=== PATIENT | male | born 1955 | race Caucasian/White ===

== ENCOUNTER 2017-07-27 07:30 | Day surgery (SDC) | payer BC, OTHER ==
[2017-07-27] MEDS ORDERED: Dextrose 5%-Lactated Ringers 1,000 ML IV SCH (08:15)
[2017-07-27] MEDS ORDERED: Propofol 200 MG/20 ML SDV ONE (09:03)
[2017-07-27] MEDS ORDERED: fentaNYL 100 MCG/2 ML SDV ONE (09:03)
[2017-07-27] MEDS ORDERED: Midazolam 1 MG/ML 2 ML SDV ONE (09:03)
--- NOTE | 2017-07-30 12:26 | OR ---
DATE OF PROCEDURE: 07/27/2017 PREOPERATIVE DIAGNOSIS: Indications for screening colonoscopy. POSTOPERATIVE DIAGNOSIS: Normal colonoscopic exam. OPERATIVE PROCEDURE: Flexible colonoscopy. ANESTHESIA: IV sedation. INDICATIONS FOR PROCEDURE: A 62-year-old male presenting for a screening colonoscopy. He does have a family history of his mother having advanced colon carcinoma. Last colonoscopy was 10 years ago. The plan is to proceed with a flexible colonoscopy with biopsies and/or polypectomy as indicated. Potential risks including bleeding and perforation were discussed, and the patient wishes to proceed. DETAILS OF PROCEDURE: The patient was taken to the operating room and placed in a left lateral decubitus position. After IV sedation was administered, initial digital rectal exam was performed and was unremarkable. Colonoscope was then passed into the rectum with retroflexion revealing uncomplicated hemorrhoidal columns. The scope was eventually passed to the level of the cecum. There was a fairly good prep. There was some liquid stool as well as some undigested corn present, but minimal areas of mucosa were not visualized to that level, and there were no areas of colitis and no areas of diverticular disease, and no polyps or other signs of neoplasia. The scope was then withdrawn, the above findings reconfirmed, and the procedure concluded. The patient was taken to the recovery room in a satisfactory condition. Given the patient's history of his mother having colon carcinoma, he should probably be on a five-year followup track with regard to his colonoscopy, i.e. the next colonoscopy should be in around 5 years. Booker Roblero MD /[id number]
== END 2017-07-27 11:00 | disposition home or self-care (01) ==
LOC: JP.SDS 07:30
PROVIDERS: ATTEND Surgery
DX: Z12.11 Encounter for screening for malignant neoplasm of colon (principal); Z80.0 Family history of malignant neoplasm of digestive organs
CPT/HCPCS: 45378; J2250; J2704; J3010; J7042

== ENCOUNTER 2020-03-10 21:00 | Emergency (ER) | payer BC, MEDICARE ==
[2020-03-10] MEDS ORDERED: EPINEPHrine 1 MG/ML SDV IM ONE (21:09)
[2020-03-10] MEDS ORDERED: methylPREDNISolone Sodium Succinate 125 MG/2 ML SDV IV ONE (21:09)
[2020-03-10] MEDS ORDERED: Famotidine 20 MG/2 ML SDV IVPUSH ONE (21:09)
--- NOTE | 2020-03-10 21:13 | EDM.PDOC ---
ED HPI GENERAL MEDICAL PROBLEM - General Stated Complaint: MED[facility] Time Seen by Provider: 03/10/20 21:09 Source of Information: Reports: Patient, EMS, RN Notes Reviewed History Limitations: Reports: No Limitations - History of Present Illness INITIAL COMMENTS - FREE TEXT/NARRATIVE: 64-year-old gentleman presents to the emergency department today with swollen lips and swollen tongue unfortunately he was stung by a wasp just prior to presentation EMS did find him provided 50 mg Benadryl IM with 0.5 mg epinephrine IM as well as Zofran 4 mg IV and 500 cc of fluids he was hypotensive on scene significant swelling around the face and swelling of the tongue complaining of difficulty swallowing no shortness of breath. At this time he feels the epinephrine has helped however he does have swelling on the lips he states his tongue still feels a little full however no difficulty breathing left foot Pain Score (Numeric/FACES): 1 - Related Data Allergies Allergy/AdvReac Type Severity Reaction Status Date / Time No Known Allergies Allergy Verified 03/10/20 21:29 Home Meds: Home Meds Simvastatin [Zocor] 20 mg PO DAILY 07/25/17 [History] amLODIPine [Norvasc] 10 mg PO DAILY 07/25/17 [History] buPROPion HCL [Wellbutrin Xl] 300 mg PO DAILY 07/25/17 [History] Aspirin 325 mg PO DAILY 07/27/17 [History] Past Medical History HEENT History: Reports: Impaired Vision Cardiovascular History: Reports: High Cholesterol, Hypertension Musculoskeletal History: Reports: Other (See Below) Other Musculoskeletal History: plantars fasciitis - Infectious Disease History Infectious Disease History: Reports: Chicken Pox, Influenza - Past Surgical History HEENT Surgical History: Reports: Oral Surgery Cardiovascular Surgical History: Reports: None GI Surgical History: Reports: Appendectomy, Cholecystectomy, Colonoscopy Neurological Surgical History: Reports: None Musculoskeletal Surgical History: Reports: None Social & Family History - Family History Family Medical History: Noncontributory - Caffeine Use Caffeine Use: Reports: Soda ED ROS ALLERGIC REACTION - Review of Systems Review Of Systems: See Below HEENT: Reports: Throat Swelling, Other (Facial swelling) Respiratory: Reports: No Symptoms Cardiovascular: Reports: Blood Pressure Problem, Lightheadedness GI/Abdominal: Reports: Nausea ED EXAM GENERAL NO PERIP PULSE - Physical Exam Exam: See Below Exam Limited By: No Limitations General Appearance: Alert, Mild Distress Throat/Mouth: Normal Inspection, Normal Teeth, Normal Gums, Normal Oropharynx, No Airway Compromise, Other (Lips are edematous speech is slightly difficult to understand secondary to edema) Head: Atraumatic, Normocephalic Neck: Normal Inspection, Supple, Non-Tender, Full Range of Motion Respiratory/Chest: No Respiratory Distress, Lungs Clear, Normal Breath Sounds, No Accessory Muscle Use, Chest Non-Tender Cardiovascular: Regular Rate, Rhythm, No Murmur GI/Abdominal: Soft, Non-Tender Extremities: No Pedal Edema, Other (+2 pedal pulse) Course - Vital Signs Last Recorded V/S: Last Vital Signs Temp 97.5 F 03/10/20 21:31 Pulse 50 L 03/11/20 00:59 Resp 13 03/11/20 00:59 BP 128/74 03/11/20 00:59 Pulse Ox 92 L 03/11/20 00:59 - Orders/Labs/Meds Orders: Active Orders 24 hr Category Date Time Status Sodium Chloride 0.9% [Normal Saline] 1,000 ml Med 03/10/20 21:15 Active IV ASDIRECTED Medication Orders Sodium Chloride (Normal Saline) 1,000 mls @ 999 mls/hr IV ASDIRECTED RONDA Last Admin: 03/10/20 21:48 Dose: 999 mls/hr Documented by: KAROLINA Meds: Medications Generic Name Dose Route Start Last Admin Trade Name Freq PRN Reason Stop Dose Admin Sodium Chloride 1,000 mls @ 999 mls/hr 03/10/20 21:15 03/10/20 21:48 Normal Saline IV 999 mls/hr ASDIRECTED RONDA Administration Discontinued Medications Generic Name Dose Route Start Last Admin Trade Name Freq PRN Reason Stop Dose Admin Epinephrine HCl 0.4 mg 03/10/20 21:09 03/10/20 21:46 Adrenalin IM 03/10/20 21:10 0.4 mg ONETIME ONE Administration Famotidine 20 mg 03/10/20 21:09 03/10/20 21:47 Pepcid IVPUSH 03/10/20 21:10 20 mg ONETIME ONE Administration Methylprednisolone Sodium Succinate 125 mg 03/10/20 21:09 03/10/20 21:46 Solu-Medrol IV 03/10/20 21:10 125 mg ONETIME ONE Administration Ondansetron HCl 4 mg 03/10/20 21:17 03/10/20 21:48 Zofran IVPUSH 03/10/20 21:18 4 mg ONETIME ONE Administration Departure - Departure Time of Disposition: 01:03 Disposition: Home, Self-Care 01 Condition: Fair Clinical Impression: Anaphylactic reaction Qualifiers: Encounter type: initial encounter Qualified Code(s): T78.2XXA - Anaphylactic shock, unspecified, initial encounter - Discharge Information Instructions: Anaphylactic Reaction, Adult Referrals: Bertin Camargo MD [Primary Care Provider] - Additional Instructions: Continue with regular medications, please carry the EpiPen whenever you are outside or have the possibility of wasp exposure, please followup with your primary care provider in 3-5 days if not better, please call return to the emergency department with worsening of symptoms. Sepsis Event Note (ED) - Focused Exam Vital Signs: Vital Signs Temp Pulse Resp BP Pulse Ox 03/11/20 00:59 50 L 13 128/74 92 L 03/11/20 00:02 55 L 15 130/67 95 03/10/20 23:14 54 L 14 104/59 L 93 L 03/10/20 21:31 97.5 F 60 16 149/74 H 95 03/10/20 21:28 96.2 F L 69 18 123/66 97 03/10/20 21:17 96.2 F L 69 18 123/66 97 - My Orders Last 24 Hours: My Active Orders 03/10/20 21:15 Sodium Chloride 0.9% [Normal Saline] 1,000 ml IV ASDIRECTED - Assessment/Plan Last 24 Hours: My Active Orders 03/10/20 21:15 Sodium Chloride 0.9% [Normal Saline] 1,000 ml IV ASDIRECTED Plan: Assessment Acuity = acute Site and laterality = anaphylactic reaction Etiology = secondary to wasp sting Manifestations = none Location of injury = Home Lab values = none Plan Good improvement with combination epinephrine, Solu-Medrol, Benadryl, Pepcid, prescription written for EpiPen 0.4 mg IM subcu x1 to pack follow-up primary care 3 to 5 days if not better This note was dictated using [employer] voice recognition software please call with any questions on syntax or grammar.
[2020-03-10] MEDS ORDERED: Sodium Chloride 0.9% 1,000 ML IV SCH (21:15)
[2020-03-10] MEDS ORDERED: Ondansetron 4 MG/2 ML SDV IVPUSH ONE (21:17)
== END 2020-03-11 01:38 | disposition home or self-care (01) ==
LOC: JP.ED 21:00
DX: T63.461A Toxic effect of venom of wasps, accidental (unintentional), initial encounter (principal); T78.2XXA Anaphylactic shock, unspecified, initial encounter; E78.00 Pure hypercholesterolemia, unspecified; I10 Essential (primary) hypertension; Z79.899 Other long term (current) drug therapy; Z79.82 Long term (current) use of aspirin
CPT/HCPCS: 96361; 96372; 96374; 96375; 99283; J0171; J2405; J2930; J3490; J7030; 99284